=== PATIENT | male | born 1980 | race Caucasian/White ===

== ENCOUNTER 2021-04-04 20:40 | Emergency (ER) | payer MEDICAID ==
[~2021-04-04] VITALS: Ht 175.3 cm; Wt 109.0 kg
[2021-04-04 20:42] VITALS: BP 140/86
[2021-04-04 22:39] LABS: BASOPHILS % 0.2 % (0.0-2.0); EOSINOPHILS % 3.3 % (0.0-5.0); HEMOGLOBIN. 15.3 g/dL (14.0-18.0); LYMPHOCYTES % 11.5 % (20.0-50.0); MEAN CORPUSCULAR HEMOGLOBIN 33.5 pg (28.0-32.0); MEAN CORPUSCULAR VOLUME 94.1 fL (80.0-94.0); MEAN PLATELET VOLUME 7.5 fl (7.4-10.4); MONOCYTES % 7.3 % (2.0-8.0); NEUTROPHILS % 77.7 % (40.0-76.0); PLATELET 307 x1000/uL (130-400); RED BLOOD CELL COUNT 4.57 mill/uL (4.7-6.1); RED CELL DISTRIBUTION WIDTH 13.5 % (11.6-14.6)
[2021-04-04 22:42] LABS: CHLORIDE 106 mEq/L (98-107)
[2021-04-04 22:47] LABS: ETHANOL BLOOD < 10 mg/dL
== END 2021-04-05 00:44 | disposition left against medical advice (07) ==
LOC: ER 20:40
DX: M54.2 Cervicalgia (principal); I10 Essential (primary) hypertension; F32.9 Major depressive disorder, single episode, unspecified
CPT/HCPCS: 36415; 80053; 80320; 84443; 85025; 99283; G0480

== ENCOUNTER 2021-11-11 05:31 | Emergency (ER) | payer MEDICAID, OTHER ==
[~2021-11-11] VITALS: Ht 177.8 cm; Wt 91.0 kg
[2021-11-11] MEDS ORDERED: DULOXETINE HCL 20MG DR CAPSULE PO SCH (09:00)
[2021-11-11] MEDS: ARIPIPRAZOLE 5MG TABLET PO SCH ×2 (09:20→09:21)
[2021-11-11] MEDS ORDERED: CHLORDIAZEPOXIDE 25MG CAPSULE PO PRN (10:15)
[2021-11-11] MEDS ORDERED: IBUPROFEN 400MG TABLET PO ONE (10:15)
[2021-11-11] MEDS: ACETAMINOPHEN 325MG TABLET PO ONE ×2 (10:35→10:51)
[2021-11-11 11:02] LABS: BASOPHILS % 0.6 % (0.0-2.0); EOSINOPHILS % 2.5 % (0.0-5.0); HEMOGLOBIN. 12.9 g/dL (14.0-18.0); LYMPHOCYTES % 19.1 % (20.0-50.0); MEAN CORPUSCULAR HEMOGLOBIN 33.5 pg (28.0-32.0); MEAN CORPUSCULAR VOLUME 98.6 fL (80.0-94.0); MONOCYTES % 10.1 % (2.0-8.0); NEUTROPHILS % 67.7 % (40.0-76.0); PLATELET 261 x1000/uL (130-400); RED BLOOD CELL COUNT 3.85 mill/uL (4.7-6.1); RED CELL DISTRIBUTION WIDTH 14.6 % (11.6-14.6)
[2021-11-11 11:04] LABS: *BARBITURATES SCREEN URINE NEGATIVE (NEGATIVE); *BENZODIAZEPINES SCREEN URINE PRESUMTIVE POSITIVE (NEGATIVE)
[2021-11-11 11:05] LABS: *AMPHETAMINES SCREEN URINE PRESUMTIVE POSITIVE (NEGATIVE); *COCAINE SCREEN URINE NEGATIVE (NEGATIVE); CANNABINOID URINE SCREEN NEGATIVE (NEGATIVE); METHADONE URINE SCREEN NEGATIVE (NEGATIVE); OPIATES URINE SCREEN NEGATIVE (NEGATIVE); PHENCYCLIDINE URINE SCREEN NEGATIVE (NEGATIVE)
[2021-11-11 11:09] LABS: CHLORIDE 106 mEq/L (98-107)
[2021-11-11 11:12] LABS: ETHANOL BLOOD < 10 mg/dL
[2021-11-11] MEDS ORDERED: GABAPENTIN 100MG CAPSULE PO SCH (14:00)
[2021-11-11] MEDS ORDERED: NICOTINE 21MG PATCH TD ONE (16:15)
[2021-11-11 16:36] VITALS: BP 147/79
== END 2021-11-11 17:30 | disposition home or self-care (01) ==
LOC: ER 05:46
DX: F32.A Depression, unspecified (principal); R45.851 Suicidal ideations; I10 Essential (primary) hypertension; F13.10 Sedative, hypnotic or anxiolytic abuse, uncomplicated; F11.10 Opioid abuse, uncomplicated; F15.10 Other stimulant abuse, uncomplicated; G89.29 Other chronic pain; M54.2 Cervicalgia; Z20.822 Contact with and (suspected) exposure to COVID-19
CPT/HCPCS: 36415; 80048; 80076; 80305; 80307; 80320; 80329; 85025; 87426; 99284; G0480